=== PATIENT | female | born 2000 | race Caucasian/White ===

== ENCOUNTER 2018-10-01 07:18 | Inpatient (IN) | END 2018-10-04 14:55 | disposition home or self-care (01) | DRG 807 ==

== ENCOUNTER 2019-05-10 14:40 | Emergency (ER) | payer OTHER ==
[~2019-05-10] VITALS: Ht 165.1 cm; Wt 72.0 kg
[~2019-05-10 14:40] MED LIST: CALC-143 PO; IRON1TAB78 PO; PREN1TAB79 PO
[2019-05-10 15:01] VITALS: BP 127/70; PULSE 81; RESP 18; Ht 165.1 cm; Wt 72.0 kg
[2019-05-10] MEDS ORDERED: ACETAMINOPHEN 325 MG TAB PO STA (16:34)
[2019-05-10] MEDS ORDERED: CEPH-443 PO (17:56)
--- NOTE | 2019-05-10 20:58 | ERD ---
ER Documentation Chief Complaint Chief Complaint INTERMITTENT ABD. CRAMPS, N/V/D FOR FEW WEEKS. NO URINARY PROBLEM. HPI 19-year-old female presenting to the emergency department complaining of intermittent pelvic cramping since this morning. Current symptoms rated 7/10 in severity. Associated with nausea. She denies dysuria, fevers, vaginal bleeding, discharge, or other symptoms at this time. She states her last menstrual cycle was 03/06/2019, however she is irregular. ROS All systems reviewed and are negative except as per history of present illness. Medications Home Meds Active Scripts Cephalexin* (Keflex*) 500 Mg Capsule, 500 MG PO TID for 7 Days, CAP Prov:KWAN WATTS PA-C 05/10/19 Reported Medications Iron,Carbonyl/Vit C/Vit B12/Fa (IRON 100 PLUS TABLET) 1 Each Tablet, 1 EACH PO, TAB 10/01/18 Calcium Citrate/Vitamin D (Citracal-Vitamin D 200 MG-250) 1 Each Tablet, 1 EACH PO BID, TAB 10/01/18 Vit W-Ca,Fe,FA(<1 mg) ( Vitamins) 1 Each Tablet, 1 EACH PO, TAB 10/01/18 [None] No Conflict Check 11/27/10 Allergies Allergies: Coded Allergies: No Known Drug Allergies (Verified Allergy, Mild, 05/10/19) PMhx/Soc Medical and Surgical Hx: pt denies Medical Hx, pt denies Surgical Hx History of Surgery: No Anesthesia Reaction: No Hx Neurological Disorder: No Hx Respiratory Disorders: No Hx Cardiac Disorders: No Hx Psychiatric Problems: No Hx Miscellaneous Medical Probl: No Hx Alcohol Use: No Hx Substance Use: No Hx Tobacco Use: No Smoking Status: Never smoker FmHx Family History: No diabetes Physical Exam Vitals Vital Signs Date Temp Pulse Resp B/P (MAP) Pulse Ox O2 O2 Flow FiO2 Time Delivery Rate 05/10/19 98.6 81 18 127/70 100 15:01 (89) Physical Exam Const: No acute distress Head: Atraumatic Eyes: Normal Conjunctiva ENT: Normal External Ears, Nose and Mouth. Neck: Full range of motion. No meningismus. Resp: Clear to auscultation bilaterally Cardio: Regular rate and rhythm, no murmurs Abd: Soft, non tender, non distended. Normal bowel sounds. Mild bilateral tenderness to palpation of the pelvic region. No rebound tenderness or guarding. No McBurney's point tenderness. Skin: No petechiae or rashes Back: No midline or flank tenderness. No CVA tenderness. Ext: No cyanosis, or edema Neur: Awake and alert Psych: Normal Mood and Affect Results 24 hrs Laboratory Tests Test 05/10/19 17:00 05/10/19 17:09 Urine Color YELLOW Urine Clarity SLIGHTLY CLOUDY Urine pH 5.0 Urine Specific Fonda 1.026 Urine Ketones 2+ mg/dL Urine Nitrite NEGATIVE mg/dL Urine Bilirubin NEGATIVE mg/dL Urine Urobilinogen NEGATIVE mg/dL Urine Leukocyte Esterase 2+ Paulette/ul Urine Microscopic RBC 1 /HPF Urine Microscopic WBC 15 /HPF Urine Squamous Epithelial Cells FEW /HPF Urine Mucus FEW /HPF Urine Hemoglobin NEGATIVE mg/dL Urine Glucose NEGATIVE mg/dL Urine Total Protein NEGATIVE mg/dl POC Beta HCG, Qualitative POSITIVE Current Medications Medications Dose Sig/Deborah Start Time Status Last (Trade) Ordered Route PRN Stop Time Admin Dose Reason Admin 650 mg ONCE STAT 05/10/19 DC 05/10/19 Acetaminophen PO 16:34 17:03 (Tylenol 05/10/19 16:35 Tab) [place] [id number] Rad[address] Main Line: [phone] DIAGNOSTIC IMAGING REPORT Patient: FORD JAFFE : 2000 Age: 19 Sex: F MR #: [id number] DOS: 05/10/19 1634 Ordering MD: KWAN WATTS PA-C Location: [facility] Room/Bed: PROCEDURE: US OB. CLINICAL INDICATION: Pelvic pain. Threatened . TECHNIQUE: Transabdominal views of the pelvis are available for review. COMPARISON: No prior studies are available for comparison. FINDINGS: The uterus is anteverted. It measures 10.5 x 6.7 x 6.3 cm. Uterus is of normal contour and echogenicity. Noted is a single intrauterine gestation sac. Mean sac diameter measures 3.3 cm in diameter. There is a pole with a heart beat measuring 163 beats per minute. [place]-rump length measures 8 seen millimeters corresponding to a gestational age of 8 weeks 2 days by ultrasound criteria. There is no subchorionic hemorrhage. The right ovary measures 4.1 x 1.8 x 2.1 centimeter. The left ovary measures 2.9 x 1.7 x 1 point a centimeter. No adnexal masses seen. There is normal arterial flow to both ovaries on color-flow Doppler imaging. There is no free fluid in the pelvis. No solid pelvic mass is present. IMPRESSION: Single intrauterine gestation of approximate gestational age 8 weeks 2 days by ultrasound criteria with positive heart beat. No subchorionic hemorrhage. .Anoop Cannon MD, MD Date Time Electronically viewed and signed by .Anoop Cannon MD, MD on 05/10/2019 17:48 .A/ CC: KWAN WATTS PA-C [id number] Procedures/MDM 19-year-old female presenting to the emergency department complaining of bilat eral pelvic cramping. Patient's urine was positive. Pelvic ultrasound revealed intrauterine with positive heart tones. Urinalysis was concerning for urinary tract infection. Beta-hCG was consistent with term of . Patient is stable and appropriate for discharge and further outpatient management with prescriptions. No evidence to suggest pyelo nephritis, PID, tubo-ovarian abscess, ectopic , acute abdomen, or other emergencies. Patient advised to have 24 to 30-hour follow-up with her [facility] physician and return to the department immediately for any new or worsening or concerning symptoms. She understands and agrees with diagnosis and plan. Departure Diagnosis: Primary Impression: Pelvic pain complicating , antepartum Additional Impression: UTI (urinary tract infection) Condition: Fair Patient Instructions: Understanding Urinary Tract Infections (UTIs) Referrals: COMMUNITY CLINICS YOU HAVE RECEIVED A MEDICAL SCREENING EXAM AND THE RESULTS INDICATE THAT YOU DO NOT HAVE A CONDITION THAT REQUIRES URGENT TREATMENT IN THE EMERGENCY DEPARTMENT. FURTHER EVALUATION AND TREATMENT OF YOUR CONDITION CAN WAIT UNTIL YOU ARE SEEN IN YOUR DOCTORS OFFICE WITHIN THE NEXT 1-2 DAYS. IT IS YOUR RESPONSIBILITY TO MAKE AN APPOINTMENT FOR FOLOW-UP CARE. IF YOU HAVE A PRIMARY DOCTOR --you should call your primary doctor and schedule an appointment IF YOU DO NOT HAVE A PRIMARY DOCTOR YOU CAN CALL OUR PHYSICIAN REFERRAL HOTLINE AT IF YOU CAN NOT AFFORD TO SEE A PHYSICIAN YOU CAN CHOSE FROM THE FOLLOWING [facility] CLINICS [facility] [address] [facility]. [facility] [address] [facility] [facility] [address] [facility] [address] [facility] [address] [facility] [facility]. [address] [place] [facility] [place] [address] [facility] [address] [place] [address] OFFICE FAX , JULI[address] [place] [address] [address] [place] [address] [place] [address] [address] [facility] [address] [facility], [address] [address] [address] [address] [place] [address] [facility] [address] [place] [address] [address] [facility] [address] [address] [place] [address] [facility] [address] [place] [address] [facility]. [address], [place] [address] [address] [address] [place] [address] Additional Instructions: SPECIALIST: YOU HAVE A MEDICAL CONDITION WHICH REQUIRES YOU TO SEE A SPECIALIST WITHIN THE NEXT 1-2 DAYS. PLEASE FOLLOW UP WITH YOUR PRIMARY PHYSICIAN FOR REFFERAL.IF YOU DO NOT HAVE A PRIMARY CARE PHYSICIAN AND/OR YOU CAN NOT AFFORD TO SEE A PHYSICIAN THE FOLLOWING RESOURCES HAVE BEEN SUPPLIED TO YOU. IT IS YOUR RESPONSIBILITY TO BE SEEN BY THE SPECIALIST: KWAN DOMINGUEZ PA-C May 10, 2019 20:58
== END 2019-05-10 18:03 | disposition home or self-care (01) ==
LOC: FTE 14:40
DX: O26.891 Other specified pregnancy related conditions, first trimester (principal); O23.41 Unspecified infection of urinary tract in pregnancy, first trimester; R10.2 Pelvic and perineal pain; Z3A.08 8 weeks gestation of pregnancy
CPT/HCPCS: 76801; 81001; 81025; Z7502; Z7610